=== PATIENT | female | born 1950 | race Caucasian/White ===

== ENCOUNTER 2021-05-16 09:11 | Emergency (ER) | payer MEDICARE, SELFPAY ==
--- NOTE | 2021-05-16 09:15 | DI.RAD_ITS ---
Exam(s) XR THUMB RT EXAM: XR THUMB RT CLINICAL HISTORY: FOOSH yesterday. TECHNIQUE: 2D digital imaging was performed. COMPARISON: No exams were available for comparison FINDINGS: BONES: No acute fracture is present. No bony destructive lesion is seen. JOINTS: No dislocation present. Mild degenerative changes interphalangeal joints. SOFT TISSUE: Normal. IMPRESSION: No evidence of acute fracture, dislocation, or subluxation. DATA REPOSITORY: RADIATION DOSE DELIVERED:
[2021-05-16 09:16] VITALS: BP 155/72; PULSE 87; RESP 16; TEMP 36.6; O2SAT 97
--- NOTE | 2021-05-16 09:23 | W.ED.GENAD ---
Discharge Plan Disposition Patient Disposition: HOME Condition: Good Discharge Details Clinical Impression: Sprain of thumb Primary Care Provider: [place],Local ED Provider: Susy Lira Home Meds and New Rx's Prescriptions: Continued levothyroxine [Synthroid] 88 mcg Tablet 88 mcg PO DAILY RF: 0 Discharge Instructions Instructions: Finger Sprain (ED) Additional Instructions: Your x-ray is reassuring here today. No evidence of fracture or dislocation. Concern for sprain. Please encourage rest, ice, elevation. Tylenol and ibuprofen as needed for discomfort. Please continue with splint while pain persist. Please follow-up with primary care in the 2 weeks for reevaluation. If you develop any new or worsening symptoms please seek care urgently once again. Please avoid heavy lifting with his hand or excess strain on the thumb. Medical Decision Making Patient is a pleasant 70-year-old [id number] female presented with chief complaint of right thumb pain. She reports that yesterday she was gathering cattails for a flower arrangement when she slipped and fell on her right hand. She denies striking her head, loss consciousness. States that she has a minor discomfort initially to the right knee but the pain subsided. No other injury at time of the incident. Pain is over the MCP joint. She denies any numbness or tingling. No radiation of pain. Has had limited range of motion secondary to swelling and discomfort. Has not had any analgesics as of yet. On exam, patient appears nontoxic. She is swelling over the metacarpal joint of the right thumb dorsal aspect. No swelling on the palmar side. Sensation is intact, intact capillary refill. 2+ distal pulses. No pain over the anatomical snuffbox. No pain elsewhere with palpation of the hands or fingers. No pain on palpation about the wrist. Patient has a limited range of motion but is able to demonstrate abduction and abduction. We will give ibuprofen to help with discomfort and obtain x-ray to evaluate potential bony abnormalities. FINDINGS: BONES: No acute fracture is present. No bony destructive lesion is seen. JOINTS: No dislocation present. Mild degenerative changes interphalangeal joints. SOFT TISSUE: Normal. IMPRESSION: No evidence of acute fracture, dislocation, or subluxation. Discussed these findings with the patient. Advised likely sprain. Perform more extensive ligamentous exam. She is able to flex and extend against resistance. I am concerned for potential ulnar collateral ligament injury. However, my exam is limited secondary to her discomfort and inability to really strain on this area. Will place the patient in a thumb spica. I encouraged rest, ice, elevation. Tylenol and ibuprofen as needed for discomfort. Advised that she should have this rechecked in 2 weeks with primary care. Patient is new to the area, I have asked her care management team to assist in establishing local primary care and ensuring follow-up in 2 weeks. Return precautions were discussed. All questions and concerns were addressed and she is agreement this plan peer HPI General Mode of arrival: ambulatory. Date/Time Provider Initiated Documentation: 05/16/21 09:23. Limitations to Documentation: no limitations. Information obtained by: patient and RN notes reviewed. History of Present Illness 70 year old F presents to the emergency department with the chief complaint of right thumb pain, described as severe, with intensity rated at 9. Quality is described as aching, and is localized to the right and upper extremity. Patient reports no radiation. Patient started experiencing this day(s) (1) and it has been constant. Immobilization improves symptom(s), Movement worsens symptoms . Patient notes no other symptoms.. Patient did receive the following treatments prior to arrival, none Related Data Home Medications Medication Instructions Recorded Confirmed levothyroxine [Synthroid] 88 mcg PO DAILY 05/16/21 05/16/21 Allergies Allergy/AdvReac Type Severity Reaction Status Date / Time epinephrine Allergy Unverified 05/16/21 09:20 Sulfa (Sulfonamide Allergy Unverified 05/16/21 09:20 Antibiotics) General Stated Complaint: Orthopedic KENYA: 4 Review of Systems Constitutional Constitutional: Reports as per HPI, Denies chills and Denies fever(s) Musculoskeletal Musculoskeletal: Reports as per HPI and Denies tingling Integumentary/Breasts Skin/Breast: Reports as per HPI, Denies rash and Denies wounds Neurologic Neurologic: Reports as per HPI, Denies tingling and Denies paresthesias [facility] Active Problem List (Updated 05/16/21 @ 10:10 by FROILAN Mcguire) Sprain of thumb (Acute) Social History Smoking/Tobacco Use Status: Never Smoking risk assessment performed?: Yes Substance use type: does not use Exam Const General: cooperative, healthy appearing, comfortable, no acute distress, well developed and well groomed Nutritional Appearance: average body habitus and well nourished Orientation: alert and awake Resp Effort & Inspection: normal respiratory effort, able to speak in complete sentences and no respiratory distress Cardio Rate: regular rate Rhythm: regular rhythm Skin Trauma: puncture (very small red dot consistent with area of pain. No surrounding erythema) and other (No warmth or drainage) Neuro General: patient alert and patient awake Cognition: normal cognition Speech: speech normal Gait: normal gait Motor: muscle tone normal throughout Sensory Exam: no sensory deficits noted Extrem Hand/finger images: 1. Area of discomfort. Swelling compared to the contralateral side. No erythema or warmth. Sensation is intact distally. Intact capillary refill. Limited abduction secondary to discomfort over the joint. Patient is able to extend up but does have pain with this well. No pain over the anatomical snuffbox. No pain palpation over the wrist. Forage motion of the wrist. No pain elsewhere with palpation about the hand. Psych Appearance: grossly normal and well kempt Mental Status: mental status grossly normal Speech and Movement: speech and movement normal Course Vital Signs Vital signs: Vital Signs Temperature 37.8 C H 05/16/21 09:16 Pulse 87 05/16/21 09:16 Respiratory Rate 16 05/16/21 09:16 Blood Pressure 155/72 H 05/16/21 09:16 Pulse Oximetry 97 05/16/21 09:16 Temperature 37.8 C H 05/16/21 09:16 Temperature Source Skin 05/16/21 09:16 Pulse 87 05/16/21 09:16 Respiratory Rate 16 05/16/21 09:16 Respiratory Effort Non-Labored 05/16/21 09:16 Blood Pressure 155/72 H 05/16/21 09:16 Pulse Oximetry 97 05/16/21 09:16 Oxygen Delivery Method Room Air 05/16/21 09:16 Oxygen Flow Rate 0 05/16/21 09:16 Pain Level 9 05/16/21 09:16
[2021-05-16] MEDS: Ibuprofen 600 MG TAB PO (09:35)
--- NOTE | 2021-05-16 10:28 | NUR.NOTE ---
Nursing Note: Referral to Care Management to establish care, re evaluation thumb, ligamentous strain in 2 weeks. Marisabel Calvillo
== END 2021-05-16 10:45 | disposition home or self-care (01) ==
PROVIDERS: Emergency Provider Physician Assistant
DX: S63.681A Other sprain of right thumb, initial encounter (principal); W01.0XXA Fall on same level from slipping, tripping and stumbling without subsequent striking against object, initial encounter
CPT/HCPCS: 29125; 99283; 73140

== ENCOUNTER 2021-09-29 02:16 | Outpatient (CLI) | payer MEDICARE, SELFPAY ==
[2021-09-29 14:46] LABS: ALT 45 U/L (14-59); AST 27 U/L (15-37); Alkaline Phosphatase 142 U/L (46-116)
[2021-09-29 15:04] LABS: Vitamin D 25 Total 41.2 ng/mL (30-100)
[2021-09-30 11:57] LABS: Parathyroid Hormone,Intact 112 pg/mL (19-88)
== END 2021-09-29 02:17 | disposition home or self-care (01) ==
LOC: LBO 02:16
PROVIDERS: Visit Provider Nurse Practitioner Family
DX: E55.9 Vitamin D deficiency, unspecified (principal); R94.5 Abnormal results of liver function studies
CPT/HCPCS: 36415; 82306; 83970; 84075; 84450; 84460

== ENCOUNTER 2021-10-14 19:00 | Outpatient (REF) | payer MEDICARE, SELFPAY | END 2021-10-14 19:01 | disposition home or self-care (01) | LOC: NCHCN 19:00 | PROVIDERS: Visit Provider Nurse Practitioner Family | CPT/HCPCS: 82340 ==

== ENCOUNTER 2021-10-19 19:00 | Outpatient (REF) | payer MEDICARE, SELFPAY ==
[2021-10-20 09:06] LABS: Calcium Urine 6.4 mg/dL (See Note); Calcium Urine 24 hr 208 mg/24hrs (100-300); Timed Urine Volume 3250 mL
== END 2021-10-19 19:01 | disposition home or self-care (01) ==
LOC: NCHCN 19:00
PROVIDERS: Visit Provider Nurse Practitioner Family
DX: E21.0 Primary hyperparathyroidism (principal)
CPT/HCPCS: 81050; 82340

== ENCOUNTER 2021-12-13 19:58 | Outpatient (REF) | payer MEDICARE, SELFPAY ==
[2021-12-13 15:24] LABS: HCT 45.2 % (36.0-46.0); HGB 14.5 g/dL (11.2-15.7); MCH 30.5 pg (27.0-33.0); MCHC 32.1 % (32.0-36.0); MCV 95 fL (80-95); MPV 11.7 fL (8.0-11.0); Platelet Count 205 10^3/uL (130-400); RBC 4.76 10^6/uL (3.93-5.22); RDW 13.4 % (11.7-14.6); RDW-SD 47.6 fL
[2021-12-13 16:29] LABS: TSH (W/Ref FT4) 0.39 uIU/mL (0.36-3.74)
== END 2021-12-13 19:59 | disposition home or self-care (01) ==
LOC: NCHCN 19:58
PROVIDERS: Visit Provider Nurse Practitioner Family
DX: E03.9 Hypothyroidism, unspecified (principal); R53.83 Other fatigue
CPT/HCPCS: 85027; 84443

== ENCOUNTER 2022-03-08 20:30 | Outpatient (REF) | payer MEDICARE, SELFPAY ==
[2022-03-08 15:48] LABS: TSH (W/Ref FT4) 0.48 uIU/mL (0.36-3.74)
== END 2022-03-08 20:31 | disposition home or self-care (01) ==
LOC: NCHCN 20:30
PROVIDERS: Visit Provider Nurse Practitioner Family
DX: R53.83 Other fatigue (principal)
CPT/HCPCS: 84443

== ENCOUNTER → 2022-03-28 00:35 | Outpatient (CLI) | payer MEDICARE, SELFPAY ==
--- NOTE | 2022-03-28 11:45 | DI.MAMMO_ITS ---
Exam(s) MAMMO SCREENING EXAM: MAMMO SCREENING CLINICAL HISTORY: SCREENING, Z12.39 TECHNIQUE: Mammograms were interpreted according to the usual protocol including computer analysis w [employer] CAD system, tomosynthesis and C-view imaging. COMPARISON: FINDINGS: The breasts are of moderate density with fairly symmetrical distribution of fibroglandular tissue. N o dominant mass or clumped microcalcification is identified in either breast. The current examinatio n is compared with previous examinations including September 2020 and there has been no gross interval ch maria del carmen in appearance in comparison with the prior studies. IMPRESSION: No specific evidence of malignancy at this time. Routine screening examinations are suggested at ye wanda intervals in this age group according to the ACS ACR guidelines. BI-RADS Category 1 - Negative Breast Density - Category B - Scattered areas of fibroglandular density
== END ==
PROVIDERS: Visit Provider Nurse Practitioner Family
DX: Z12.31 Encounter for screening mammogram for malignant neoplasm of breast (principal)
CPT/HCPCS: 77063; 77067

== ENCOUNTER 2022-08-15 14:47 | Outpatient (REF) | payer MEDICARE, SELFPAY ==
[2022-08-15 21:01] LABS: HCT 46.2 % (36.0-46.0); HGB 15.1 g/dL (11.2-15.7); MCH 30.5 pg (27.0-33.0); MCHC 32.7 % (32.0-36.0); MCV 93 fL (80-95); MPV 11.6 fL (8.0-11.0); Platelet Count 214 10^3/uL (130-400); RBC 4.95 10^6/uL (3.93-5.22); RDW 13.2 % (11.7-14.6)
[2022-08-15 21:26] LABS: ALT 33 U/L (14-59); AST 22 U/L (15-37); Alkaline Phosphatase 129 U/L (46-116); BUN 13 mg/dL (7-18); Bilirubin, Total 0.3 mg/dL (0.2-1.0); CREATININE 0.9 mg/dL (0.55-1.02); Calcium 9.5 mg/dL (8.5-10.1); Chloride 105 mmol/L (98-107); Glucose 81 mg/dL (74-106); Potassium 4.4 mmol/L (3.5-5.1); Sodium 140 mmol/L (136-145); TSH (W/Ref FT4) 0.54 uIU/mL (0.36-3.74); Total Protein 6.8 g/dL (6.4-8.2)
[2022-08-15 22:01] LABS: Vitamin D 25 Total 42.5 ng/mL (30-100)
[2022-08-16 18:30] LABS: Parathyroid Hormone,Intact 69 pg/mL (19-88)
== END 2022-08-15 14:48 | disposition home or self-care (01) ==
LOC: NCHCN 14:47
PROVIDERS: PCP Nurse Practitioner Family; Visit Provider Nurse Practitioner Family
DX: E03.9 Hypothyroidism, unspecified (principal); E21.0 Primary hyperparathyroidism; G47.33 Obstructive sleep apnea (adult) (pediatric); E83.52 Hypercalcemia; R94.5 Abnormal results of liver function studies
CPT/HCPCS: 80053; 82306; 85027; 83970; 84443

== ENCOUNTER 2022-12-12 03:28 | Outpatient (CLI) | payer MEDICARE, SELFPAY ==
[2022-12-12 12:19] LABS: Abs Immature Grans 0.02 10^3/uL (0.0-0.06); Absolute Basophil Count 0.09 10^3/uL (0.0-0.2); Absolute Eosinophil Count 0.24 10^3/uL (0.0-0.7); Absolute Monocyte Count 0.81 10^3/uL (0.1-0.8); Absolute Neutrophil Count 5.67 10^3/uL (1.2-6.7); Basophils % 0.9; Eosinophils % 2.4; HCT 45.2 % (36.0-46.0); HGB 14.7 g/dL (11.2-15.7); Immature Grans % 0.2; Lymphocytes % 30.5; MCH 30.4 pg (27.0-33.0); MCHC 32.5 % (32.0-36.0); MCV 94 fL (80-95); MPV 10.9 fL (8.0-11.0); Monocytes % 8.2; Neutrophils % 57.8; Platelet Count 236 10^3/uL (130-400); RBC 4.83 10^6/uL (3.93-5.22); RDW 13.4 % (11.7-14.6); RDW-SD 46.2 fL; WBC 9.83 10^3/uL (4.4-10.8)
[2022-12-12 12:41] LABS: ALT 27 U/L (14-59); AST 18 U/L (15-37); Albumin 3.5 g/dL (3.4-5.0); Alkaline Phosphatase 118 U/L (46-116); Anion Gap 8.2 mmol/L (3-11); BUN 17 mg/dL (7-18); Bilirubin, Total 0.5 mg/dL (0.2-1.0); CO2 25.8 mmol/L (21.0-32.0); Chloride 108 mmol/L (98-107); Estimated GFR 59.12 (mL/min/1.73m2); Glucose 117 mg/dL (74-106); Potassium 4.5 mmol/L (3.5-5.1); Sodium 142 mmol/L (136-145)
[2022-12-12 12:53] LABS: Calcium 9.3 mg/dL (8.5-10.1)
[2022-12-13 08:41] LABS: Lab Add On Test DONE
[2022-12-13 09:03] LABS: Hemoglobin A1C 6.2 % (<5.7)
== END 2022-12-12 03:29 | disposition home or self-care (01) ==
LOC: LOS 03:28
PROVIDERS: PCP Family Medicine; Visit Provider Family Medicine
DX: E03.9 Hypothyroidism, unspecified (principal); D64.9 Anemia, unspecified; R73.9 Hyperglycemia, unspecified; R10.9 Unspecified abdominal pain
CPT/HCPCS: 36415; 80053; 83036; 84443; 85025

== ENCOUNTER 2023-01-11 16:42 | Outpatient (CLI) | payer MEDICARE, SELFPAY ==
--- NOTE | 2023-01-11 16:30 | RT.EKG_ITS ---
APPROVED REPORT Exam: Resting ECG Reason for Exam: c/o jaw pain Patient Location: O HR:102 bpm ECG Measurements Heart Rate 102 AXIS MD 143 P 80 QRSd 80 QRS 80 QT 331 T 59 QTc 432 Conclusion Sinus tachycardia...rate> 99 Artifact in lead(s) V3 and baseline wander in lead(s) V3 Otherwise normal ECG
== END 2023-01-11 16:43 | disposition home or self-care (01) ==
LOC: DI.CM 16:42
PROVIDERS: PCP Family Medicine; Visit Provider Family Medicine
DX: R68.84 Jaw pain (principal)
CPT/HCPCS: 93010

== ENCOUNTER 2023-01-11 17:38 | Emergency (ER) | payer MEDICARE, SELFPAY ==
[2023-01-11] VITALS (41 sets, daily range): BP systolic 105–151; BP diastolic 36–116; PULSE 0–107; RESP 13–34; TEMP 37.1; O2SAT 90–96
--- NOTE | 2023-01-11 17:45 | RT.EKG_ITS ---
APPROVED REPORT Exam: Resting ECG Reason for Exam: tachycardia Patient Location: E HR:96 bpm ECG Measurements Heart Rate 96 AXIS AZ 119 P 41 QRSd 78 QRS 78 QT 330 T 54 QTc 416 Conclusion Sinus rhythm...normal P axis, V-rate 60- 99 sinus rhythm, normal axis, normal intervals, non ischemic
--- NOTE | 2023-01-11 18:30 | DI.CT_ITS ---
Exam(s) CT CHEST PE ABD PELVIS W EXAM: CT CHEST PE ABD PELVIS W CLINICAL HISTORY: tachycardia, hypoxia, abd pain bloating. TECHNIQUE: Imaging Protocol: Axial computed tomography images with coronal and sagittal reformatted images were created and reviewed CONTRAST MATERIAL: Intravenous: Omnipaque 350 Contrast volume:100 ml Oral: yes COMPARISON: No exams were available for comparison FINDINGS: CHEST: Tracheobronchial tree: Patent where visualized. Pulmonary parenchyma: Mild dependent changes. No consolidation or dominant measurable mass. Pleura: No effusion or pneumothorax. Lymph nodes: Within normal limits. Aorta: Thoracic portion non-dilated. Mild atherosclerotic changes. No dissection. Pulmonary arteries: No evidence of pulmonary emboli. Heart: Normal size. Minimal coronary artery calcifications. Bones: Unremarkable for age. No lytic or blastic lesions.No compression fractures. ABDOMEN: Liver: Normal density. No measurable mass. Gallbladder and biliary tract: No radiodense calculus or dilation. Pancreas: Normal density, no abnormal calcifications or inflammatory process. Spleen: Normal. Kidneys: Normal size, contour and axis. No radiodense stones or obstructive uropathy. No suspicious m asses seen. Adrenal glands: No masses seen. Aorta and branch vessels: Abdominal portion non-dilated. Moderate atherosclerotic changes. Iliac and femoral arteries are patent. Celiac axis, SMA and renal arteries are patent. Accessory left renal artery. Lymph nodes: Within normal limits. Soft tissues: Unremarkable. PELVIS: Bladder: Symmetric distention, no gross wall thickening. Bowel: No obstruction or bowel wall thickening. Sigmoid diverticulosis. Normal quantity of stool. Peritoneal cavity: No ascites, collection or mesenteric inflammatory response. Bones: Degenerative disc changes in the lumbar spine. Degenerative changes in the hips, right greate r than left. Reproductive organs: Status post hysterectomy. IMPRESSION: No acute abnormality in the chest, abdomen or pelvis.. Moderate atherosclerotic changes, mainly of the abdominal aorta. No evidence of significant branch v essel stenosis. RADIATION DOSE DELIVERED: Total DLP DATA REPOSITORY: All CT scans at this facility are submitted to the National Radiology Data Registry (NRDR) Dose Index Registry (DIR) with the [employer] (ACR). RADIATION OPTIMIZATION: All CT scans at this facility use at least one of these dose optimization te chniques: automated exposure control; mA and/or kV adjustment per patient size (includes targeted exa ms where dose is matched to clinical indication); or iterative reconstruction.
--- NOTE | 2023-01-11 18:38 | W.ED.GENAD ---
Discharge Plan Discharge Details Chief Complaint: GenMedical Primary Care Provider: Teja Medina ED Provider: Kiel Velazquez Home Meds and New Rx's Prescriptions: No Action levothyroxine [Synthroid] 88 mcg Tablet 88 mcg PO DAILY Medical Decision Making 72-year-old female history of diabetes hypothyroidism presents referred in by primary care physician for evaluation of tachycardia and hypoxia, no chest pain or shortness of breath, has felt fatigued over the past couple of weeks, has also experienced abdominal pain bloating and nausea; pulled an engorged tick off her lower extremity within the last couple of weeks; history of exogenous estrogen use recently stopped within the last month. Must consider PE given hypoxia and tachycardia and recent estrogen use must also consider viral illness versus bacterial infection such as UTI versus intra-abdominal infection given bloating and nausea however nontender nondistended nonperitoneal versus hypothyroidism versus tickborne illness must also consider pneumonia lower suspicion for aortic pathology ACS CHF or pneumothorax; will obtain screening labs CT chest abdomen pelvis fluids close reassessment disposition pending result 20: 13 resting comfortably evidence of leukocytosis. Disposition pending lab results and imaging results. HPI General Date/Time Provider Initiated Documentation: 01/11/23 17:48. HPI Narrative: 72-year-old female history of diabetes hypothyroidism presents with fatigue, noted by her primary care physician to have tachycardia and relative hypoxia to the low 90s on room air, no chest pain or shortness of breath Farrukh has felt fatigued over the past several weeks, no recent travel no leg swelling or leg pain, no history of thromboembolic disease however patient was recently on supplemental estrogen recently discontinued approximately 1 month; has also felt abdominal discomfort and nausea and some bloating and recently pulled an engorged tick off her leg. Related Data Home Medications Medication Instructions Recorded Confirmed levothyroxine 88 mcg tablet 88 mcg PO DAILY 05/16/21 01/11/23 (Synthroid) Allergies Allergy/AdvReac Type Severity Reaction Status Date / Time prednisone Allergy Unknown Verified 01/11/23 17:44 epinephrine Allergy Verified 01/11/23 17:44 Sulfa (Sulfonamide Allergy Verified 01/11/23 17:44 Antibiotics) General Stated Complaint: GenMedical KENYA: 3 Review of Systems Narrative: Review of Systems Constitutional: Fatigue Eyes: negative ENT: negative Cardiovascular: negative Respiratory: negative Gastrointestinal: Abdominal pain nausea bloating : negative Musculoskeletal: negative Skin: negative Neurologic: negative Psych: negative PFSH All Active Problems (Updated 01/11/23 @ 17:21 by Teja Medina MD) Hypoxia (Acute) Weakness (Acute) Chronic fatigue (Acute) Hyperglycemia (Acute) Hot flashes (Acute) Hypothyroidism (Chronic) Vitamin D deficiency (Acute) Depressive disorder (Chronic) Fatty liver (Acute) Hyperlipidemia (Acute) Diabetes mellitus type 2 in obese (Acute) Arthritis (Acute) ADD (attention deficit disorder) (Acute) Obesity (Chronic) Obstructive sleep apnea (Chronic) Hypercalcemia (Acute) Elevated liver function tests (Acute) Osteopenia (Acute) Primary hyperparathyroidism (Acute) Hearing deficit (Acute) BMI 31.0-31.9,adult (Acute) Elevated blood pressure reading without diagnosis of hypertension (Acute) Sprain of thumb (Acute) Surgical History (Updated 12/05/22 @ 09:18 by Kati Bennett) Hx of hysterectomy Family History (Updated 12/05/22 @ 10:23 by Kati Bennett) Mother , 72 Depression Father , 86 Depression Substance use disorder Sister No problems noted. Sister No problems noted. Brother Depression Brother Depression Son No problems noted. Son No problems noted. Maternal Grandfather , 56 Cancer Unspecified Paternal Grandfather , 80 No problems noted. Maternal Grandmother , 98 No problems noted. Paternal Grandmother , 36 No problems noted. Social History (Updated 12/05/22 @ 10:21 by Kati Bennett) Smoking/Tobacco Use Status: Never Second Hand Exposure: No Smoking risk assessment performed?: Yes Alcohol Intake: current Alcohol Intake frequency: a few times a month Alcohol type: wine Drug use: Never Substance use type: does not use Caregiver/Support person: No Household members: family and children Housing: apartment Communication Needs: None Do you need help understanding health information?: Rarely Pets and animals: No Sexually active: No Do you think of yourself as: straight/heterosexual Current gender identity: female What is your relationship status?: never How often do you talk on the phone with friends or family?: three or more times per week How often do you get together with friends or relatives?: twice per week How often do you attend confucianist or jehovah's witness services?: decline to answer Do you belong to any clubs or organized social groups?: no Panel score (0-1 are the most socially isolated patients): 1 What type of physical activity do you participate in: walking Duration: 30-45 minutes/day Frequency: 3-4 times per week Hellen/Hoahaoism: None Special hellen needs: No Seatbelt use: always Helmet use: Yes Helmet use: always Drive intox or ride w/intox refrigerated national truck driver: No Do you feel safe at home: Yes Do you feel safe in your relationship?: Yes Exam Narrative Exam Narrative: Physical Examination General: alert, awake, cooperative, resting comfortably, no acute distress HEENT: normocephalic, atraumatic; PERRL, EOM intact, conjunctiva normal; no nasal discharge; moist mucous membranes, oral and pharyngeal mucosa normal, tolerating secretions Neck: supple, trachea midline; full ROM Chest: normal to inspection Respiratory: normal respiratory effort, speaking in full sentences, clear to auscultation, no wheezing, rales or rhonchi Cardiac: regular rate, regular rhythm, S1S2 intact, no murmurs rubs or gallops GI: abdomen soft, non-tender, non-distended; no palpable mass or hepatosplenomegaly Skin: no lesions, rashes or trauma appreciated Neuro: AAOx3, normal speech, moving all extremities Extremities: No peripheral edema Psych: Appropriate mood and affect Course Vital Signs Vital signs: Vital Signs Temperature 37.1 C 01/11/23 17:40 Pulse 107 H 01/11/23 17:40 Respiratory Rate 18 01/11/23 17:40 Blood Pressure 128/63 01/11/23 17:40 Pulse Oximetry 96 01/11/23 17:40 Temperature 37.1 C 01/11/23 17:40 Temperature Source Skin 01/11/23 17:40 Pulse 107 H 01/11/23 17:40 Respiratory Rate 18 01/11/23 17:40 Respiratory Effort Normal 01/11/23 18:03 Respiratory Depth Normal 01/11/23 18:03 Respiratory Pattern Normal 01/11/23 18:03 Blood Pressure 128/63 01/11/23 17:40 Blood Pressure Position Sitting 01/11/23 17:40 Pulse Oximetry 96 01/11/23 17:40 Oxygen Delivery Method Room Air 01/11/23 17:40 Oxygen Flow Rate 0 01/11/23 17:40 Pain Level 2 01/11/23 17:40 Sign Out Sign Out Data: Sign Out Comment: pending CT PE ABD PELV, fatigue, nausea, relative hypoxia and tachycardia Last updated by Isai Morrow MD at 01/11/23 19:50
[2023-01-11] MEDS: Normal Saline 1,000 ML 1000 ML IV (18:40)
[2023-01-11 18:55] LABS: Abs Immature Grans 0.06 10^3/uL (0.0-0.06); Absolute Lymphocyte Count 0.95 10^3/uL (1.2-3.4); Absolute Neutrophil Count 14.25 10^3/uL (1.2-6.7); Basophils % 0.2; Eosinophils % 0.4; HCT 48.5 % (36.0-46.0); HGB 15.7 g/dL (11.2-15.7); Immature Grans % 0.4; Lymphocytes % 5.9; MCH 30.3 pg (27.0-33.0); MCHC 32.4 % (32.0-36.0); MCV 94 fL (80-95); MPV 10.9 fL (8.0-11.0); Monocytes % 4.4; Neutrophils % 88.7; Platelet Count 223 10^3/uL (130-400); RBC 5.18 10^6/uL (3.93-5.22); RDW 13.3 % (11.7-14.6); RDW-SD 45.9 fL; WBC 16.07 10^3/uL (4.4-10.8)
[2023-01-11 18:56] LABS: Absolute Basophil Count 0.03 10^3/uL (0.0-0.2); Absolute Eosinophil Count 0.06 10^3/uL (0.0-0.7); Absolute Monocyte Count 0.71 10^3/uL (0.1-0.8)
[2023-01-11 19:15] LABS: INR 0.9 (0.9-1.1); PTT Activated 26.5 sec (21.5-31.9); Prothrombin Time 9.3 sec (9.3-11.0)
[2023-01-11 19:17] LABS: Lipase 68 U/L (16-77); NT-proBNP 66 pg/mL (<300)
[2023-01-11 19:19] LABS: ALT 28 U/L (14-59); AST 23 U/L (15-37); Albumin 3.9 g/dL (3.4-5.0); Alkaline Phosphatase 115 U/L (46-116); Anion Gap 8.2 mmol/L (3-11); BUN 19 mg/dL (7-18); Bilirubin, Total 0.6 mg/dL (0.2-1.0); CO2 25.8 mmol/L (21.0-32.0); Calcium 9.1 mg/dL (8.5-10.1); Chloride 106 mmol/L (98-107); Estimated GFR 59.12 (mL/min/1.73m2); Glucose 106 mg/dL (74-106); Potassium 4.3 mmol/L (3.5-5.1); Sodium 140 mmol/L (136-145); TSH (W/Ref FT4) 0.38 uIU/mL (0.36-3.74); Total Protein 7.2 g/dL (6.4-8.2); Troponin I < 50 ng/L (<or=60)
[2023-01-11 19:27] LABS: COVID-19 PCR Negative (Negative); Influenza A PCR Negative (Negative); Influenza B PCR Negative (Negative); RSV PCR Negative (Negative)
[2023-01-11 19:29] LABS: Source Nasopharynx
[2023-01-11] MEDS: Omnipaque 350 MG/ML 100 ML BTL IJ (19:44)
--- NOTE | 2023-01-11 20:15 | DI.VRAD_ITS ---
PROCEDURE INFORMATION: Exam: CTA Chest With Contrast CTA Abdomen With Contrast Exam date and time: 01/11/2023 7:38 PM Age: 72 years old Clinical indication: Other: Tachycardia, hypoxia, abd pain bloating TECHNIQUE: Imaging protocol: Computed tomographic angiography of the chest with contrast. Exam focused on the arteries. Computed tomographic angiography of the abdomen with contrast. Exam focused on the arteries. 3D rendering (Not supervised by radiologist): MIP and/or 3D reconstructed images were created by the technologist. Contrast material: OMNIAPQUE 350; Contrast volume: 100 ml; Contrast route: INTRAVENOUS (IV); COMPARISON: No relevant prior studies available. FINDINGS: VASCULATURE: Pulmonary arteries: Normal. No pulmonary emboli. Aorta: Moderate atherosclerotic calcification and mural thrombus throughout the abdominal aorta. No evidence of aortic aneurysm or dissection. Celiac trunk and mesenteric arteries: No occlusion or significant stenosis. Renal arteries: Accessory left renal artery arises approximally 3.3 cm below the level of the main left renal artery. No evidence of renal artery stenosis. CHEST: Lungs: Mild patchy subsegmental atelectasis in the lower lungs. No active pulmonary infiltrate. Pleural spaces: Unremarkable. No pneumothorax. No pleural effusion. Heart: Unremarkable. No cardiomegaly. No pericardial effusion. ABDOMEN AND PELVIS: Liver: No mass. Gallbladder and bile ducts: Unremarkable. No calcified stones. No ductal dilation. Pancreas: Unremarkable. No mass. No ductal dilation. Spleen: Unremarkable. No splenomegaly. Adrenal glands: Unremarkable. No mass. Kidneys and ureters: Unremarkable. No solid mass. No hydronephrosis. Stomach and bowel: Moderate sigmoid diverticulosis. No bowel wall thickening or evidence of bowel obstruction. Intraperitoneal space: Unremarkable. No free air. No significant fluid collection. Lymph nodes: Unremarkable. No enlarged lymph nodes. Bones/joints: Significant degenerative disc changes throughout the lumbar spine with sparing of the L1-L2 level. No vertebral body compression or acute fracture. Moderate degenerative changes in the bilateral hip joints. Soft tissues: Unremarkable. IMPRESSION: Moderate atherosclerotic disease of the aorta without evidence of aneurysm or dissection. No significant celiac, mesenteric, iliac or renal artery stenosis. Other incidental findings as noted. No acute abnormality. Dictated and Authenticated by: Mikhail Almodovar MD. Ordering:BOBY Alex MD
[2023-01-11 20:25] LABS: Bilirubin Negative (Negative); Blood Negative (Negative); Clarity Clear (Clear); Glucose Negative (Negative); Ketones Negative (Negative); Leukocyte Esterase Negative (Negative); Nitrite Negative (Negative); Specific Gravity <= 1.005 (1.005-1.025); Urobilinogen 0.2 mg/dL (Up to 0.2); pH 5.5 (5-8)
--- NOTE | 2023-01-11 21:55 | NUR.NOTE ---
Nursing Note: Report to Pushpa ZAZUETA
[2023-01-11 22:10] LABS: Troponin I < 50 ng/L (<or=60)
--- NOTE | 2023-01-11 22:22 | W.EDPROG ---
Date of service: 01/11/23 Time of Service: 22:22 Medical Decision Making pt signed out to me pending second troponin which is negative, she is stable and has no chest pain, stable vitals. Discussed results with her and given reassuring workup feel she is stable for d/c, advised to f/u with pcp. Discussed empiric doxy but she declined this and wants to wait for results of the tick panel Sign Out Sign Out Data: Sign Out Comment: pending CT PE ABD PELV, fatigue, nausea, relative hypoxia and tachycardia Last updated by Isai Morrow MD at 01/11/23 19:50 Discharge Plan Disposition Patient Disposition: Home Condition: Stable Discharge Details Clinical Impression: Fatigue Primary Care Provider: Teja Medina ED Provider: Kiel Velazquez [place] Meds and New Rx's Prescriptions: Continued levothyroxine [Synthroid] 88 mcg Tablet 88 mcg PO DAILY Discharge Instructions Instructions: Fatigue (ED) Additional Instructions: Your workup today did not reveal any concerning findings at this time follow up with your primary care provider within 1 week if you feel more ill, have severe chest pain or trouble breathing return to the emergency department
--- NOTE | 2023-01-13 08:13 | NUR.NOTE ---
Nursing Note: Accessed pt chart to determine if the Lyme panel was completed. It is not and pt was notified that it would be probably the first of next week. She stated she is now having consistent diarrhea, what to do? Consulted with FROILAN Mcguire and patient was told that she could return to ED for exam, wait to see PCP, go to [facility], or talk to telephone MD engine repairer production. She elected to speak to engine repairer production MD.
[2023-01-15 09:20] LABS: Lyme Ab w Rflx to Lyme Confirm Negative (Negative)
[2023-01-16 15:38] LABS: Anaplasma phagocytophilum Negative (Negative); B. miyamotoi PCR Negative (Negative); Babesia divergens/MO-1 Negative (Negative); Babesia duncani Negative (Negative); Babesia microti Negative (Negative); Ehrlichia chaffeensis Negative (Negative); Ehrlichia ewingii/canis Negative (Negative); Ehrlichia muris eauclairensis Negative (Negative)
== END 2023-01-11 23:22 | disposition home or self-care (01) ==
PROVIDERS: Emergency Medicine; Emergency Provider Emergency Medicine; PCP Family Medicine
DX: R53.83 Other fatigue (principal); R68.84 Jaw pain; R00.0 Tachycardia, unspecified; E11.9 Type 2 diabetes mellitus without complications; E03.9 Hypothyroidism, unspecified; Z79.84 Long term (current) use of oral hypoglycemic drugs; R09.02 Hypoxemia
CPT/HCPCS: 71275; 74177; 80053; 83690; 87637; 87798; 93005; 96360; 99285; 81003; 83880; 84443; 84484; 85025; 85610; 85730; 86618; 93010; 99283; J3490

== ENCOUNTER 2023-02-01 02:42 | Outpatient (CLI) | payer MEDICARE, SELFPAY ==
[2023-02-01 09:34] LABS: Calculated LDL 132 mg/dL (<100); Cholesterol 216 mg/dL (<200); HDL Cholesterol 52 mg/dL (40-60); TSH (W/Ref FT4) 1.18 uIU/mL (0.36-3.74); Triglyceride 164 mg/dL (<150)
== END 2023-02-01 02:43 ==
LOC: LBO 02:42
PROVIDERS: PCP Family Medicine; Visit Provider Obstetrics & Gynecology
DX: E66.9 Obesity, unspecified (principal); E11.69 Type 2 diabetes mellitus with other specified complication
CPT/HCPCS: 36415; 80061; 84443

== ENCOUNTER 2023-03-24 03:46 | Emergency (ER) | payer MEDICARE, SELFPAY ==
[2023-03-24] VITALS (15 sets, daily range): BP systolic 158–211; BP diastolic 54–81; PULSE 83–93; RESP 9–19; TEMP 36.2–36.4; O2SAT 93–98
--- NOTE | 2023-03-24 03:45 | RT.EKG_ITS ---
APPROVED REPORT Exam: Resting ECG Reason for Exam: tachy Patient Location: E HR:90 bpm ECG Measurements Heart Rate 90 AXIS RI 170 P 74 QRSd 84 QRS 77 QT 362 T 52 QTc 443 Conclusion Sinus rhythm...normal P axis, V-rate 60- 99
--- NOTE | 2023-03-24 04:20 | ED.GENADUL_ITS ---
Discharge Plan Disposition Patient Disposition: Home Condition: Good Discharge Details Clinical Impression: Atrial fibrillation and flutter Primary Care Provider: Teja Medina ED Provider: Hillary Luo Home Meds and New Rx's Prescriptions: New lorazepam 0.5 mg tablet 0.5 mg PO TID PRN (Reason: agitation) Qty: 15 0RF Continued Mounjaro 2.5 mg/0.5 mL pen injector 2.5 mg subcut QWEEK 28 Days Qty: 2 1RF Rx Instructions: Inject subcutaneously 2.5 mg once weekly levothyroxine [Synthroid] 88 mcg tablet 88 mcg PO DAILY Qty: 90 3RF Fluad Quad (65y up)(PF) 60 mcg (15 mcg x 4)/0.5 mL syringe 0.5 ml IM ONCE Qty: 0.5 0RF Discharge Instructions Instructions: A-fib (Atrial Fibrillation) (ED) Additional Instructions: Take your heart rate and determine whether it is regular or irregular if you are feeling agitated and like your heart is going fast. If your heart rate is over 120 bpm return to the ER. Few teeth are chattering please take your temperature at home and come to the ER for fever. Dr. Medina's office should call you Sunday for a follow-up appointment. Medical Decision Making Patient's heart rate does elevate into the 120s on the monitor. At times when she is going both fast and slow it looks like she is in atrial fibrillation/flutter. She also has PACs. We will try to catch this with a monitor printout. 0550 We did leave the patient on the monitor but aside from PACs she did not go into A-fib/flutter again. [id number] score is 3. We did discuss anticoagulation and risk of stroke. She declines starting this medication at this time. I told her that Dr. Medina may want to order a Holter or event monitor for her. She will try a SA Ativan to try to sleep. It is unclear whether this is being caused by her new injectable medication. Most of the side effects are GI in origin. Medical Records Medical records reviewed: Yes I reviewed the patient's medical records. Lab Data Lab results reviewed: Yes I reviewed the patient's lab results. Lab results narrative: WNL ECG Data Attestation: I personally reviewed and interpreted this ECG (s) as follows: (NSR 90, nl intervals and EKG) HPI General Date/Time Provider Initiated Documentation: 03/24/23 04:03 . HPI Narrative: This 72-year-old female patient presents with a chief complaint of malaise. The patient states that she just began taking Mounjaro 3 nights ago for weight loss. She has a history of type 2 diabetes. She states that she has not been able to sleep for the past 2 nights. She just does not feel well. Tonight she felt agitated, her heart rate was going fast, and her teeth were chattering. She has not had a fever that she knows of. She tells me that her temperature typically runs a little bit low. She has been passing grace colored stool and has felt vaguely nauseous. She denies abdominal pain, vomiting, or diarrhea. There is no dysuria. She has had no chest pain, difficulty breathing, or URI symptoms. She does state that she has a mild headache. There is no stiff neck or rash. She has no weakness, dizziness, or pedal edema. The Mounjaro is an injectable medicine that you take once a week. 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 He has not tried anything to make herself feel better. She states she is quite sensitive to medications. Related Data Home Medications Medication Instructions Recorded Confirmed Synthroid 88 mcg tablet 88 mcg PO DAILY #90 tabs 03/12/23 03/24/23 (levothyroxine) tirzepatide 2.5 mg/0.5 mL 2.5 mg (0.5 mL) subcut QWEEK 4 03/12/23 03/24/23 subcutaneous pen injector weeks #2 mL (Mounjaro) lorazepam 0.5 mg tablet 0.5 mg PO TID PRN agitation #15 03/24/23 tabs Previous Rx's Medication Instructions Recorded Synthroid 88 mcg tablet 88 mcg PO DAILY #90 tabs 03/12/23 (levothyroxine) tirzepatide 2.5 mg/0.5 mL 2.5 mg (0.5 mL) subcut QWEEK 4 03/12/23 subcutaneous pen injector weeks #2 mL (Mounjaro) lorazepam 0.5 mg tablet 0.5 mg PO TID PRN agitation #15 03/24/23 tabs Allergies Allergy/AdvReac Type Severity Reaction Status Date / Time prednisone Allergy Unknown Verified 01/31/23 13:04 epinephrine Allergy Verified 01/31/23 13:04 Sulfa (Sulfonamide Allergy Verified 01/31/23 13:04 Antibiotics) General Stated Complaint: Allergic KENYA: 3 Review of Systems Constitutional Constitutional: Reports chills (Has had shaking chills with teeth chattering), Denies fever(s), Reports headache(s) (Mild) and Denies weakness Eyes Eyes: Denies diplopia and Reports other (no redness) ENT Ears, Nose, Mouth, and Throat: Denies otalgia, Reports headache(s) (Mild), Denies nasal congestion, Denies nasal discharge, Denies neck pain and Denies sore throat Cardiovascular Cardiovascular: Denies chest pain, Reports palpitations (Heart rate has felt fast but is 90 in the ED) and Denies dyspnea Respiratory Respiratory: Denies cough and Denies dyspnea Gastrointestinal Gastrointestinal: Denies abdominal pain, Denies diarrhea, Reports nausea and Denies vomiting Genitourinary Genitourinary: Denies dysuria Musculoskeletal Musculoskeletal: Denies myalgias, Denies muscle weakness, Denies neck pain, Denies numbness and Reports other (edema) Integumentary/Breasts Skin/Breast: Denies change in pigmentation and Denies rash Neurologic Neurologic: Reports headache(s) (Mild), Denies numbness, Denies weakness and Reports other (Feels agitated) Endocrine Endocrine: Reports palpitations (Heart rate has felt fast but is 90 in the ED) [facility] All Active Problems (Updated 03/24/23 @ 05:37 by Hillary Luo MD) Atrial fibrillation and flutter (Acute) Dysthymia (Acute) Hypothyroidism (Chronic) Fatty liver (Acute) Hyperlipidemia (Acute) Diabetes mellitus type 2 in obese (Acute) ADD (attention deficit disorder) (Acute) Obesity (Chronic) Osteopenia (Acute) Primary hyperparathyroidism (Acute) BMI 31.0-31.9,adult (Acute) Medical History Arthritis Chronic fatigue Depressive disorder Elevated blood pressure reading without diagnosis of hypertension Elevated glucose Elevated liver function tests Hearing deficit Hot flashes Hypercalcemia Hyperglycemia Hypoxia Obstructive sleep apnea Sprain of thumb Vitamin D deficiency Weakness Well woman exam with routine gynecological exam Surgical History Hx of hysterectomy Family History Mother , 72 Depression Bipolar affect, depressed Father , 86 Depression Substance use disorder Sister FHx: mental illness Sister No problems noted. Brother Depression Bipolar affect, depressed Brother Depression Bipolar affect, depressed Son No problems noted. Son No problems noted. Maternal Grandfather , 56 Cancer Unspecified Paternal Grandfather , 80 No problems noted. Maternal Grandmother , 98 No problems noted. Paternal Grandmother , 36 No problems noted. Social History Smoking/Tobacco Use Status: Never Second Hand Exposure: No Smoking risk assessment performed?: Yes Alcohol Intake: current Alcohol Intake frequency: a few times a month Alcohol type: wine Drug use: Never Substance use type: does not use Caregiver/Support person: No Household members: family and children Housing: apartment Communication Needs: None Do you need help understanding health information?: Rarely Pets and animals: No Sexually active: No Do you think of yourself as: straight/heterosexual Current gender identity: female What is your relationship status?: never How often do you talk on the phone with friends or family?: three or more times per week How often do you get together with friends or relatives?: twice per week How often do you attend lutheran or yazidism services?: decline to answer Do you belong to any clubs or organized social groups?: no Panel score (0-1 are the most socially isolated patients): 1 What type of physical activity do you participate in: walking Duration: 30-45 minutes/day Frequency: 3-4 times per week Hellen/Uatsdin: None Special hellen needs: No Seatbelt use: always Helmet use: Yes Helmet use: always Drive intox or ride w/intox class a regional truck driver: No Do you feel safe at home: Yes Do you feel safe in your relationship?: Yes Female Reproductive History Menstrual Age of Menarche: 11 control method: none and permanent sterilization History History 2 Para 2 Hx # Term Pregnancies Multiple births Hx # Pregnancies Ectopic pregnancies AB induced Hx Number of Living Children AB spontaneous Past Pregnancies Del. Date GA/Weeks # Preg Succ Route Wgt Sex Labor Lgth Anesth esia Location Prov Complic 06/06/81 vaginal Male 10/21/90 vaginal Male Exam Const General: no acute distress, well developed, well groomed and not in acute distress Nutritional Appearance: well nourished Orientation: alert and oriented x3 HENMT Head: normocephalic and atraumatic Ears: external ears normal Mouth: oropharynx normal and moist mucous membranes Throat: posterior oropharynx normal Eyes Conjunctivae: conjunctivae normal Neck Neck: full ROM and supple Chest Chest: normal inspection of the chest Resp Effort & Inspection: normal respiratory effort Auscultation: clear to auscultation bilaterally Cardio Rate: regular rate Rhythm: regular rhythm Heart Sounds: no murmurs and no rubs GI Inspection: normal to inspection Palpation: soft, nontender and other (non distended) Auscultation: normal bowel sounds Skin General skin exam: no rashes or lesions noted and other (pink, warm, dry) Neuro General: patient alert, patient awake and patient oriented x3 Speech: speech normal Motor: other (VALERO) Sensory Exam: no sensory deficits noted Extrem General: normal to inspection, full ROM and pedal edema present Psych Mental Status: mental status grossly normal Speech and Movement: speech and movement normal Affect: normal affect Course Vital Signs Vital signs: Vital Signs Temperature 36.4 C L 03/24/23 03:51 Pulse 93 H 03/24/23 03:51 Respiratory Rate 18 03/24/23 03:51 Blood Pressure 211/70 H 03/24/23 03:51 Pulse Oximetry 95 03/24/23 03:51 Temperature 36.4 C L 03/24/23 03:51 Temperature Source Temporal Artery Scan 03/24/23 03:51 Pulse 93 H 03/24/23 03:51 Respiratory Rate 18 03/24/23 03:51 Respiratory Effort Normal, Non-Labored 03/24/23 03:56 Respiratory Pattern Tachypnea 03/24/23 03:56 Blood Pressure 211/70 H 03/24/23 03:51 Blood Pressure Position Sitting 03/24/23 03:51 Pulse Oximetry 95 03/24/23 03:51 Oxygen Delivery Method Room Air 03/24/23 03:51 Oxygen Flow Rate 0 03/24/23 03:51 Pain Level 0 03/24/23 03:51 PAWSS Have you Been Recently Intoxicated or Drunk Within the Last 30 days?: No Have you Ever Experienced Previous Episodes of Alcohol Withdrawal?: No Have you ever Experienced Withdrawal Seizures?: No Have you ever Experienced Delirium Tremens(DT)s?: No Have you ever undergone Alcohol Rehabilitation Treatment (i.e, inpt ot outpatient treatment programs)?: No Have you ever Experienced Blackouts?: No Have you ever Combined Alcohol with other Downers within the last 90 days?: No Have you ever Combined Alcohol with any other Substance of Abuse during the last 90 days?: No Positive Blood Alcohol level on Presentation? [PCS.BAL]: Yes Result: 1
[2023-03-24 04:30] LABS: Abs Immature Grans 0.02 10^3/uL (0.0-0.06); Absolute Basophil Count 0.05 10^3/uL (0.0-0.2); Absolute Eosinophil Count 0.11 10^3/uL (0.0-0.7); Absolute Lymphocyte Count 1.84 10^3/uL (1.2-3.4); Absolute Monocyte Count 0.52 10^3/uL (0.1-0.8); Absolute Neutrophil Count 6.02 10^3/uL (1.2-6.7); Basophils % 0.6; Eosinophils % 1.3; HCT 44.4 % (36.0-46.0); HGB 14.7 g/dL (11.2-15.7); Immature Grans % 0.2; Lymphocytes % 21.5; MCH 30.4 pg (27.0-33.0); MCHC 33.1 % (32.0-36.0); MCV 92 fL (80-95); MPV 10.4 fL (8.0-11.0); Monocytes % 6.1; Neutrophils % 70.3; Platelet Count 199 10^3/uL (130-400); RBC 4.84 10^6/uL (3.93-5.22); RDW 13.4 % (11.7-14.6); RDW-SD 45.6 fL; WBC 8.56 10^3/uL (4.4-10.8)
[2023-03-24 04:31] LABS: BE (Venous) -1 mmol/L (-2-3); HCO3 (Venous) 24 mmol/L (23-28); O2 Sat (Venous) 70 %; TCO2 (Venous) 22 mmol/L (24-29); pCO2 (Venous) 42 mmHg (41-51); pH (Venous) 7.37 (7.31-7.41); pO2 (Venous) 38 mmHg
[2023-03-24] MEDS: Normal Saline 1,000 ML 1000 ML IV (04:35)
--- NOTE | 2023-03-24 04:45 | DI.RAD_ITS ---
Exam(s) XR PORTABLE CHEST AP EXAM: XR PORTABLE CHEST AP CLINICAL HISTORY: AFIB. TECHNIQUE: 2D digital imaging was performed. COMPARISON: No exams were available for comparison FINDINGS: Single AP portable view. Heart size is upper normal. The mediastinum is not widened. Lungs are clear. No infiltrates nor obvious pleural effusions. IMPRESSION: No acute pulmonary findings on this single AP portable view of the chest. DATA REPOSITORY: RADIATION DOSE DELIVERED:
[2023-03-24 04:51] LABS: Troponin I < 50 ng/L (<or=60)
[2023-03-24 04:53] LABS: Magnesium 1.8 mg/dL (1.8-2.4)
[2023-03-24 04:58] LABS: ALT 29 U/L (14-59); AST 22 U/L (15-37); Albumin 3.7 g/dL (3.4-5.0); Alkaline Phosphatase 111 U/L (46-116); Anion Gap 10.1 mmol/L (3-11); BUN 16 mg/dL (7-18); Bilirubin, Total 0.4 mg/dL (0.2-1.0); CO2 23.9 mmol/L (21.0-32.0); Calcium 9.6 mg/dL (8.5-10.1); Chloride 105 mmol/L (98-107); Estimated GFR 59.12 (mL/min/1.73m2); Glucose 146 mg/dL (74-106); Sodium 139 mmol/L (136-145); TSH (W/Ref FT4) 1.56 uIU/mL (0.36-3.74); Total Protein 6.7 g/dL (6.4-8.2)
[2023-03-24 05:02] LABS: Bilirubin Negative (Negative); Blood Negative (Negative); Clarity Clear (Clear); Glucose Negative (Negative); Ketones Negative (Negative); Leukocyte Esterase Negative (Negative); Nitrite Negative (Negative); Urobilinogen 0.2 mg/dL (Up to 0.2); pH 5.5 (5-8)
--- NOTE | 2023-03-24 05:37 | NUR.NOTE ---
Pt placed on care management referral list to see primary in 1 week for palpatation and A-FIB
[2023-03-24] MEDS: LORazepam 0.5 MG TAB 1 MG PO (06:04)
--- NOTE | 2023-03-24 06:05 | DI.VRAD_ITS ---
PROCEDURE INFORMATION: Exam: XR Chest Exam date and time: 03/24/2023 5:10 AM Age: 72 years old Clinical indication: Other: Afib TECHNIQUE: Imaging protocol: Radiologic exam of the chest. Views: 1 view. COMPARISON: CT CHEST PE ABD PELVIS W 01/11/2023 7:38 PM FINDINGS: Lungs: Unremarkable. No consolidation. Pleural spaces: Unremarkable. No pleural effusion. No pneumothorax. Heart/Mediastinum: Unremarkable. No cardiomegaly. Bones/joints: Unremarkable. IMPRESSION: No acute findings. Dictated and Authenticated by: Elias Kline MD. Ordering:MYRTLE Thornton MD
--- NOTE | 2023-03-28 09:30 | NUR.NOTE ---
Accessed pt chart to determine number of EKG orders. Duplicate order cancelled. Nursing Note:
== END 2023-03-24 06:34 | disposition home or self-care (01) ==
PROVIDERS: Emergency Provider Emergency Medicine; PCP Family Medicine
DX: I48.91 Unspecified atrial fibrillation (principal); I48.92 Unspecified atrial flutter; E11.9 Type 2 diabetes mellitus without complications
CPT/HCPCS: 36416; 80053; 82805; 82962; 93005; 96360; 99284; 71045; 81003; 83605; 83735; 84443; 84484; 85025; 93010

== ENCOUNTER 2023-04-12 09:23 | Outpatient (RCR) | payer MEDICARE, SELFPAY ==
--- NOTE | 2023-04-12 09:15 | HOLTER_ITS ---
APPROVED REPORT Conclusion This is a 48-hour Holter monitor ordered for palpitations Rhythm throughout was sinus with an average heart rate of 78. Minimum was 61, maximum 117 There were very rare isolated atrial and ventricular ectopic beats There was no atrial fibrillation, no SVT, no pauses greater than 3 seconds, no high-grade AV block Patient symptoms were reported which did not correspond to any dysrhythmia
== END 2023-04-24 23:59 | disposition home or self-care (01) ==
LOC: CARDOPNVT 09:23
PROVIDERS: PCP Family Medicine; Visit Provider Nurse Practitioner Family
DX: R00.2 Palpitations (principal)
CPT/HCPCS: 93227; 93225; 93226

== ENCOUNTER 2023-04-18 03:37 | Outpatient (CLI) | payer MEDICARE, SELFPAY ==
[2023-04-27 10:45] LABS: Apolipoprotein B, Serum 118 mg/dL (48-124); Beta VLDL Cholesterol Not Detected mg/dL (<15); Beta VLDL Triglycerides Not Detected mg/dL (<15); Cholesterol, Total, CDC 218 mg/dL; Chylomicron Cholesterol Not Detected; Chylomicron Triglycerides Not Detected; HDL Cholesterol, CDC 46 mg/dL (>=50); LDL Cholesterol 147 mg/dL; LDL Triglycerides 70 mg/dL (<=50); Lp(a) Cholesterol <5 mg/dL (<5); LpX Not detected; Triglycerides, CDC 166 mg/dL; VLDL Cholesterol 25 mg/dL (<30); VLDL Triglycerides 78 mg/dL (<120)
== END 2023-04-18 03:38 | disposition home or self-care (01) ==
LOC: LBO 03:37
PROVIDERS: PCP Family Medicine; Visit Provider Family Medicine
DX: E78.5 Hyperlipidemia, unspecified (principal)
CPT/HCPCS: 80061; 82172; 82664

== ENCOUNTER → 2023-05-02 00:02 | Outpatient (CLI) | payer MEDICARE, SELFPAY ==
--- NOTE | 2023-05-02 08:15 | DI.MAMMO_ITS ---
Exam(s) MAMMO SCREENING EXAM: MAMMO SCREENING CLINICAL HISTORY: screening,Z12.39 TECHNIQUE: Bilateral full field digital CC and MLO mammographic images were obtained with 3D tomosyn thesis and utilizing computer aided detection (CAD). COMPARISON: Available for comparison. FINDINGS: Masses/Architectural Distortion: None seen. Microcalcifications: No suspicious pleomorphic-type are seen. Stable benign type calcifications are s een in both breasts. Skin Thickening/Nipple Retraction: None. IMPRESSION: 1. No significant interval change with no specific features of malignancy noted. 2. Unless there is more urgent need, screening mammography is recommended, as per [employer] guidelines. BI-RADS Category 2 - Benign Findings Breast Density - Category B - Scattered areas of fibroglandular density Breast density category C or D implies that the patient has dense breast tissue. Dense breast tissue is very common and is not abnormal but dense breast tissue can make it harder to find cancer on a ma mmogram. Also, dense breast tissue may increase their breast cancer risk. This information about the result of the mammogram report was provided to the patient to raise their awareness. Use this report when you speak with the patient about their risks for breast cancer, which includes their family hist ory. At that time, you may recommend for more screening tests (Ultrasound or MRI) as they might be us eful based on their risk. A negative radiographic report should not delay biopsy if a dominant or clinically suspicious mass is present. Up to ten percent of cancers are not identified on mammography. A negative report may reinforce clinical impression. Adenosis and dense breasts may obscure an underlying neoplasm. False positive reports average 6 to 10%. Patient will receive a letter notifying them of these results.
== END ==
PROVIDERS: PCP Family Medicine; Visit Provider Obstetrics & Gynecology
DX: Z12.31 Encounter for screening mammogram for malignant neoplasm of breast (principal); R92.323 Mammographic fibroglandular density, bilateral breasts
CPT/HCPCS: 77063; 77067

== ENCOUNTER 2023-06-24 12:50 | Emergency (ER) | payer MEDICARE, SELFPAY ==
[2023-06-24 13:28] VITALS: BP 197/87; PULSE 114; RESP 18; TEMP 36.8; O2SAT 94
--- NOTE | 2023-06-24 14:56 | ED.GENADUL_ITS ---
HPI General Stated Complaint: EyeProblem KENYA: 4 Date/Time Provider Initiated Documentation: 06/24/23 13:32. HPI Narrative: 72 year-old female presents to ED today by POV/ambulating with a chief complaint of green discharge from eyes after 1 month of productive cough with onset of eye discharge this morning. Quality described as very thick green mucous-y discharge, no radiation to blurred vision, vision loss, high fever, shortness of breath, abdominal pain, nausea/vomiting. Severity is described as 6/10. Palliating factors include nothing specific attempted. Provoking factors include nothing specific. Patient not anticoagulated. Related Data Home Medications Medication Instructions Recorded Confirmed Synthroid 88 mcg tablet 88 mcg PO DAILY #90 tabs 03/12/23 06/24/23 (levothyroxine) lorazepam 0.5 mg tablet 0.5 mg PO TID PRN agitation #15 03/24/23 06/24/23 tabs vortioxetine 5 mg tablet 5 mg PO DAILY 30 days #30 tabs 05/31/23 06/24/23 azithromycin 250 mg tablet See Rx Instructions PO .COMPLEX 06/24/23 bronchitis #6 tabs erythromycin 5 mg/gram (0.5 %) eye 0.5 inch ophthalmic (eye) QID 06/24/23 ointment conjunctivitis 5 days #3.5 grams Previous Rx's Medication Instructions Recorded Synthroid 88 mcg tablet 88 mcg PO DAILY #90 tabs 03/12/23 (levothyroxine) lorazepam 0.5 mg tablet 0.5 mg PO TID PRN agitation #15 03/24/23 tabs vortioxetine 5 mg tablet 5 mg PO DAILY 30 days #30 tabs 05/31/23 azithromycin 250 mg tablet See Rx Instructions PO .COMPLEX 06/24/23 bronchitis #6 tabs erythromycin 5 mg/gram (0.5 %) eye 0.5 inch ophthalmic (eye) QID 06/24/23 ointment conjunctivitis 5 days #3.5 grams Allergies Allergy/AdvReac Type Severity Reaction Status Date / Time prednisone Allergy Unknown Verified 06/24/23 13:30 epinephrine Allergy Verified 06/24/23 13:30 Sulfa (Sulfonamide Allergy Verified 06/24/23 13:30 Antibiotics) tirzepatide [From Mounjaro] AdvReac Other (See Verified 06/24/23 13:30 Comment) Review of Systems All systems reviewed & are unremarkable except as noted in HPI and below PFSH All Active Problems (Updated 06/27/23 @ 15:15 by FROILAN Mandujano) Acute bronchitis (Acute) Conjunctivitis (Acute) Dysthymia (Acute) Hypothyroidism (Chronic) Fatty liver (Acute) Hyperlipidemia (Acute) Diabetes mellitus type 2 in obese (Acute) ADD (attention deficit disorder) (Acute) Obesity (Chronic) Osteopenia (Acute) Primary hyperparathyroidism (Acute) BMI 31.0-31.9,adult (Acute) Medical History Arthritis Chronic fatigue Depressive disorder Elevated blood pressure reading without diagnosis of hypertension Elevated glucose Elevated liver function tests Hearing deficit Hot flashes Hypercalcemia Hyperglycemia Hypoxia Obstructive sleep apnea Sprain of thumb Vitamin D deficiency Weakness Well woman exam with routine gynecological exam Surgical History Hx of hysterectomy Family History Mother , 72 Depression Bipolar affect, depressed Father , 86 Depression Substance use disorder Sister FHx: mental illness Sister No problems noted. Brother Depression Bipolar affect, depressed Brother Depression Bipolar affect, depressed Son No problems noted. Son No problems noted. Maternal Grandfather , 56 Cancer Unspecified Paternal Grandfather , 80 No problems noted. Maternal Grandmother , 98 No problems noted. Paternal Grandmother , 36 No problems noted. Social History Smoking/Tobacco Use Status: Never Second Hand Exposure: No Smoking risk assessment performed?: Yes Alcohol Intake: current Alcohol Intake frequency: a few times a month Alcohol type: wine Drug use: Never Substance use type: does not use Caregiver/Support person: No Household members: family and children Housing: apartment Communication Needs: None Do you need help understanding health information?: Rarely Pets and animals: No Sexually active: No Do you think of yourself as: straight/heterosexual Current gender identity: female What is your relationship status?: never How often do you talk on the phone with friends or family?: three or more times per week How often do you get together with friends or relatives?: twice per week How often do you attend hoahaoism or baptism services?: decline to answer Do you belong to any clubs or organized social groups?: no Panel score (0-1 are the most socially isolated patients): 1 What type of physical activity do you participate in: walking Duration: 30-45 minutes/day Frequency: 3-4 times per week Hellen/Yazdanism: None Special hellen needs: No Seatbelt use: always Helmet use: Yes Helmet use: always Drive intox or ride w/intox 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 Date GA/Weeks # Preg Succ Route Wgt Sex Labor Lgth Anesth esia Location Prov Complic 06/06/81 vaginal Male 10/21/90 vaginal Male Exam Narrative Exam Narrative: GENERAL APPEARANCE: Well-nourished, non-toxic, awake and alert, atraumatic, no acute distress. SKIN: Warm, pink, dry, intact, without rashes/lesions/ulcerations. HEAD: Normocephalic, atraumatic, normal hair distribution for gender/age. EYES: Pupils PERRLA, EOMs intact without nystagmus, erythematous conjunctiva, no exudates on lids/lashes- patient states worse in morning but has wiped away the purulent drainage, vision grossly normal ENT: Nares patent, no circumoral cyanosis, no facial swelling NECK: Supple, trachea midline, painless cervical ROM. LUNGS/CHEST: Lungs CTA bilaterally- no rhonchi/rales/wheezes diffusely, non- labored respirations, normal A/P diameter, symmetrical expansion, no chest wall deformity HEART (CV/PV): Regular rate and rhythm without murmur, no peripheral edema, no JVD. ABDOMEN: Soft, non-distended, no guarding. MSK: Normal ROM, no swelling/deformity to bilateral UEs or LEs, moving all extremities without weakness, no cyanosis, spine midline without tenderness, normal curvature. NEURO: Mental Status AAOx4 - alert to person, place, time, events No facial droop, no forehead involvement. Motor: No focal weakness - strength 5/5 in bilateral UEs and LEs, proximal and distal, symmetric. Sensory: sensation intact to light touch globally. Gait normal: patient ambulated without ataxia into ED room. PSYCH: euthymic, cooperative, pleasant, appropriate speech Course Vital Signs Vital signs: Vital Signs Temperature 36.8 C 06/24/23 13:28 Pulse 114 H 06/24/23 13:28 Respiratory Rate 18 06/24/23 13:28 Blood Pressure 197/87 H 06/24/23 13:28 Pulse Oximetry 94 06/24/23 13:28 Temperature 36.8 C 06/24/23 13:28 Temperature Source Temporal Artery Scan 06/24/23 13:28 Pulse 114 H 06/24/23 13:28 Respiratory Rate 18 06/24/23 13:28 Blood Pressure 197/87 H 06/24/23 13:28 Blood Pressure Position Sitting 06/24/23 13:28 Pulse Oximetry 94 06/24/23 13:28 Oxygen Delivery Method Room Air 06/24/23 13:28 Oxygen Flow Rate 0 06/24/23 13:28 Medical Decision Making This dictation utilizes [id number] dictation software and may contain unedited grammatical errors. 72 y/o F presents to ED today with a chief complaint of bilateral eye purulent drainage this morning, after a month-long productive cough. No shortness of breath, high fevers, visual changes, nausea/vomiting. Patients' medical history: chronic fatigue, SJ, hyperparathyroidism. Family and social history: noncontributory. Pertinent exam findings / vital signs include mild adventitious lung sounds without overt rhonchi or rales at bases, no wheezing, no increased work of breathing or respiratory distress, benign abdomen, vision grossly intact, no current exudate in the eyes but does have erythematous conjunctiva. Differential / pathologies of concern include bacterial conjunctivitis in the setting of untreated bacterial bronchitis for the past month, viral conjunctivitis, not hypoxic respiratory failure. Diagnostic studies of: -None. Interventions of: -Topical erythromycin as well as 5-day course of azithromycin for the patient's 1 month history of productive cough. ED Course/Assessment/Plan: 72-year-old female presents with bilateral eye redness and purulent drainage worse in the mornings, without visual changes, has had an untreated productive cough for the past month that is not going away, discussed with her empiric treatment versus performing a more in-depth workup at this time but she had waited a significant amount of time and opted for empiric treatment instead of waiting for chest x-ray and possible laboratory workup, she will return if there is any worsening or acute concerns.. Findings not consistent with hypoxic respiraory failure, respiratory distress, vision loss or change. Disposition of Conjunctivitis, Acute Bronchitis. Patient verbalized understanding of the plan and return to ED criteria and engaged in shared decision making. Medical Records Medical records reviewed: Yes I reviewed the patient's medical records. Discharge Plan Disposition Patient Disposition: Home Condition: Stable Discharge Details Clinical Impression: Conjunctivitis, Acute bronchitis Primary Care Provider: Teja Medina ED Provider: Luciano Lange Home Meds and New Rx's Prescriptions: New erythromycin 5 mg/gram (0.5 %) ointment 0.5 inch ophthalmic (eye) QID 5 Days Qty: 3.5 0RF Rx Instructions: apply 0.5in topically to both eyes four times per day for 5 days azithromycin 250 mg tablet See Rx Instructions .ROUTE .COMPLEX Qty: 6 0RF Rx Instructions: For 250 mg dose pack: take 500 mg today (day 1), then 250 mg for 4 days (days 2-5) Continued vortioxetine 5 mg tablet 5 mg PO DAILY 30 Days Qty: 30 6RF Rx Instructions: Take one tablet once daily by mouth. levothyroxine [Synthroid] 88 mcg tablet 88 mcg PO DAILY Qty: 90 3RF lorazepam 0.5 mg tablet 0.5 mg PO TID PRN (Reason: agitation) Qty: 15 0RF Hold Instructions: Home Medication placed on hold at Doctor's office Discharge Instructions Instructions: Azithromycin (By mouth), Erythromycin (Into the eye), Acute Bronchitis (ED), Conjunctivitis (ED) Additional Instructions: You were seen in the emergency department for your lower respiratory infection of 2 weeks now developing conjunctivitis, you likely have a bacterial infection we discussed possibility of chest x-ray but due to time constraints you wish to try erythromycin ointment topically for your eyes and a 5-day course of azithromycin, please return for any worsening, any respiratory distress or failure to improve with antibiotics. These were sent to [facility] in [place]. Please use therapeutic dosing of Tylenol (acetamenophen) & Advil (ibuprofen) in an alternating fashion as follows: Take 1000mg of Tylenol every 6 hours without missing doses- that is 4 times per day. Dailey in between the Tylenol dosings, take 400-600mg of Advil also on a 6 hour schedule, that is also 4 times per day. The daily maximum dosing of Tylenol is 4000mg, and the daily maximum dosing of Advil is 2400mg. This is safe to do for weeks. Please note that some common cold medications & prescription pain medications may contain acetamenophen and you need to read OTC drug labels and factor that in to maximum daily dosings. Referrals: Teja Medina MD [Primary Care Provider] - Discharge Data Discharge Date/Time-TO BE ENTERED AT DEPARTURE: 06/24/23 15:10
== END 2023-06-24 15:10 | disposition home or self-care (01) ==
PROVIDERS: Emergency Provider Physician Assistant; PCP Family Medicine
DX: H10.023 Other mucopurulent conjunctivitis, bilateral (principal); R05.1 Acute cough
CPT/HCPCS: 99283

== ENCOUNTER 2023-06-28 15:07 | Outpatient (CLI) | payer MEDICARE, SELFPAY ==
[2023-06-28 14:37] LABS: ESR 11 mm/hr (0-30)
[2023-06-28 14:38] LABS: Abs Immature Grans 0.04 10^3/uL (0.0-0.06); Absolute Lymphocyte Count 2.58 10^3/uL (1.2-3.4); Absolute Monocyte Count 0.79 10^3/uL (0.1-0.8); Eosinophils % 1.4; HCT 46.5 % (36.0-46.0); HGB 15.2 g/dL (11.2-15.7); Immature Grans % 0.3; Lymphocytes % 20.5; MCH 30.3 pg (27.0-33.0); MCHC 32.7 % (32.0-36.0); MCV 93 fL (80-95); MPV 9.8 fL (8.0-11.0); Monocytes % 6.3; Neutrophils % 70.5; Platelet Count 259 10^3/uL (130-400); RBC 5.01 10^6/uL (3.93-5.22); RDW 12.8 % (11.7-14.6); RDW-SD 43.8 fL; WBC 12.59 10^3/uL (4.4-10.8)
[2023-06-28 14:39] LABS: Absolute Basophil Count 0.13 10^3/uL (0.0-0.2); Absolute Eosinophil Count 0.18 10^3/uL (0.0-0.7); Absolute Neutrophil Count 8.88 10^3/uL (1.2-6.7)
[2023-06-28 14:56] LABS: Anion Gap 7.6 mmol/L (3-11); BUN 16 mg/dL (7-18); C-Reactive Protein 1.86 mg/dL (0.0-0.3); CO2 27.4 mmol/L (21.0-32.0); CREATININE 1.1 mg/dL (0.55-1.02); Calcium 9.9 mg/dL (8.5-10.1); Chloride 105 mmol/L (98-107); Estimated GFR 52.73 (mL/min/1.73m2); Glucose 118 mg/dL (74-106); Potassium 4.2 mmol/L (3.5-5.1); Sodium 140 mmol/L (136-145)
== END 2023-06-28 15:08 | disposition home or self-care (01) ==
PROVIDERS: PCP Family Medicine; Visit Provider Family Medicine
DX: R41.89 Other symptoms and signs involving cognitive functions and awareness (principal); D64.9 Anemia, unspecified; R53.81 Other malaise; E87.1 Hypo-osmolality and hyponatremia
CPT/HCPCS: 36415; 80048; 85652; 85025; 86140

== ENCOUNTER 2023-09-07 00:09 | Emergency (ER) | payer MEDICARE, SELFPAY ==
[2023-09-07 00:17] VITALS: BP 164/97; PULSE 98; RESP 16; TEMP 36.7; O2SAT 97
[2023-09-07 00:34] VITALS: PULSE 92; RESP 14; O2SAT 94
[2023-09-07 00:35] LABS: Bilirubin Negative (Negative); Blood Large (Negative); Clarity Sl Cloudy (Clear); Glucose Negative (Negative); Ketones Negative (Negative); Leukocyte Esterase Large (Negative); Nitrite Negative (Negative); Urobilinogen 0.2 mg/dL (Up to 0.2)
[2023-09-07 00:38] LABS: C & S Indicated? Yes; WBC >50 HPF (0-5)
[2023-09-07 00:39] LABS: RBC >50 HPF (0-2)
[2023-09-07 00:40] VITALS: PULSE 93; RESP 18; O2SAT 94
[2023-09-07 00:45] VITALS: BP 168/87; PULSE 92; PULSE 95; RESP 23; O2SAT 94
[2023-09-07 00:50] VITALS: PULSE 90; RESP 13; O2SAT 95
[2023-09-07] MEDS: Ciprofloxacin 500 MG TAB PO (00:51)
--- NOTE | 2023-09-07 00:51 | ED.GENADUL_ITS ---
Discharge Plan Disposition Patient Disposition: Home Condition: Good Discharge Details Clinical Impression: Urinary tract infection Primary Care Provider: Teja Medina ED Provider: Idris Scott Home Meds and New Rx's Prescriptions: New ciprofloxacin HCl [Cipro] 250 mg tablet 250 mg PO BID Qty: 14 0RF No Action (DME) Aerochamber MV Spacer See Rx Instructions .Route Qty: 1 0RF Rx Instructions: As directed levothyroxine [Synthroid] 88 mcg tablet 88 mcg PO DAILY Qty: 90 3RF Discharge Instructions Instructions: Urinary Tract Infection in Women (ED) Additional Instructions: Take 1 Cipro tablet every 12 hours, beginning tomorrow, for the next 7 days. Symptoms should be significantly improved within the next 6 to 12 hours. Follow-up with regular primary care doctor for recheck and further management if symptoms not improving with this care plan. Discharge Data Discharge Physician: Idris Scott [facility] General Date/Time Provider Initiated Documentation: 09/07/23 00:13 . HPI Narrative: The patient is a 72-year-old female, who presents the emergency department com plaining of approximately 24 hours of lower abdominal discomfort, dysuria, urinary urgency, and some hematuria. The patient reports that she has been having some increased diarrhea and typically has some staining of fecal matter in her underwear and is concerned she might have given herself urinary tract infection. The patient is not sexually active right now and has not had a urinary tract infection in several years. The patient reports no flank pain on either side. The patient denies having any fevers or chills. Related Data Home Medications Medication Instructions Recorded Confirmed Synthroid 88 mcg tablet 88 mcg PO DAILY #90 tabs 03/12/23 09/07/23 (levothyroxine) inhalational spacing device #1 ea 06/30/23 06/30/23 (Aerochamber MV spacer) ciprofloxacin HCl 250 mg tablet 250 mg PO BID #14 tabs 09/07/23 (Cipro) Previous Rx's Medication Instructions Recorded Synthroid 88 mcg tablet 88 mcg PO DAILY #90 tabs 03/12/23 (levothyroxine) inhalational spacing device #1 ea 06/30/23 (Aerochamber MV spacer) ciprofloxacin HCl 250 mg tablet 250 mg PO BID #14 tabs 09/07/23 (Cipro) Allergies Allergy/AdvReac Type Severity Reaction Status Date / Time prednisone Allergy Unknown Hives Verified 09/07/23 00:24 Sulfa (Sulfonamide Allergy Hives Verified 09/07/23 00:24 Antibiotics) tirzepatide [From Mounjaro] AdvReac Other (See Verified 09/07/23 00:24 Comment) General Stated Complaint: Urinary KENYA: 4 Exam Const Other: The patient is in no distress and has normal vital signs. GI Other: Soft, nontender, normal bowel sounds. Neuro Other: No focal motor or sensory deficits. Cranial nerves are grossly intact. Course Vital Signs Vital signs: Vital Signs Temperature 36.7 C 09/07/23 00:17 Pulse 98 H 09/07/23 00:17 Respiratory Rate 16 09/07/23 00:17 Blood Pressure 164/97 H 09/07/23 00:17 Pulse Oximetry 97 09/07/23 00:17 Temperature 36.7 C 09/07/23 00:17 Temperature Source Temporal Artery Scan 09/07/23 00:17 Pulse 98 H 09/07/23 00:17 Respiratory Rate 16 09/07/23 00:17 Respiratory Effort Normal 09/07/23 00:30 Blood Pressure 164/97 H 09/07/23 00:17 Pulse Oximetry 97 09/07/23 00:17 Oxygen Delivery Method Room Air 09/07/23 00:30 Pain Level 0 09/07/23 00:17 Lab/Test Results Lab/Test Results: 09/07/23 00:12 Urine - Reflex from Ua Urine Culture - Pending Laboratory Tests Range/Units 09/07/23 00:12 Urine Color (Yellow) Yellow Urine Clarity (Clear) Sl Cloudy Urine pH (5-8) 6.0 Ur Specific [place] (1.005-1.025) 1.020 Urine Protein (Neg-Trace) mg/dL 100 H Urine Ketones (Negative) mg/dL Negative Urine Blood (Negative) Large H Urine Nitrite (Negative) Negative Urine Bilirubin (Negative) Negative Urine Urobilinogen (Up to 0.2) mg/dL 0.2 Ur Leukocyte Esterase (Negative) Large H Urine RBC (0-2) HPF >50 H Urine WBC (0-5) HPF >50 H Ur Epithelial Cells Not Applicable Urine Crystals Not Applicable Urine Bacteria Not Applicable Urine Mucus Not Applicable Ur Culture Indicated? Yes Urine Glucose (Negative) mg/dL Negative Medical Decision Making The patient was seen and examined. She is in no distress but has signs and symptoms of urinary tract infection. She mostly does have cystitis related to fecal contamination close to her urinary tract introitus. The patient will be started on oral Cipro for 7 days and referred back to primary care as needed for any residual symptoms or management issues. Quality:SDOH Health Related Social Needs: No Data to Display PFSH All Active Problems (Updated 09/07/23 @ 00:54 by Idris Scott MD) Urinary tract infection (Acute) Malaise (Acute) Dysthymia (Acute) Hypothyroidism (Chronic) Fatty liver (Acute) Hyperlipidemia (Acute) Diabetes mellitus type 2 in obese (Acute) ADD (attention deficit disorder) (Acute) Obesity (Chronic) Osteopenia (Acute) Primary hyperparathyroidism (Acute) BMI 31.0-31.9,adult (Acute) Medical History Well woman exam with routine gynecological exam Elevated glucose Hypoxia Weakness Chronic fatigue Hyperglycemia Hot flashes Vitamin D deficiency Depressive disorder Arthritis Obstructive sleep apnea Hypercalcemia Elevated liver function tests Hearing deficit Elevated blood pressure reading without diagnosis of hypertension Sprain of thumb Surgical History Hx of hysterectomy Family History Mother , 72 Depression Bipolar affect, depressed Father , 86 Depression Substance use disorder Sister FHx: mental illness Sister No problems noted. Brother Depression Bipolar affect, depressed Brother Depression Bipolar affect, depressed Son No problems noted. Son No problems noted. Maternal Grandfather , 56 Cancer Unspecified Paternal Grandfather , 80 No problems noted. Maternal Grandmother , 98 No problems noted. Paternal Grandmother , 36 No problems noted. Social History Smoking/Tobacco Use Status: Never Second Hand Exposure: No Smoking risk assessment performed?: Yes Alcohol Intake: current Alcohol Intake frequency: a few times a month Alcohol type: wine Drug use: Never Substance use type: does not use Caregiver/Support person: No Household members: family and children Housing: apartment Communication Needs: None Do you need help understanding health information?: Rarely Pets and animals: No Sexually active: No Do you think of yourself as: straight/heterosexual Current gender identity: female What is your relationship status?: never How often do you talk on the phone with friends or family?: three or more times per week How often do you get together with friends or relatives?: twice per week How often do you attend samaritan or scientologist services?: decline to answer Do you belong to any clubs or organized social groups?: no Panel score (0-1 are the most socially isolated patients): 1 What type of physical activity do you participate in: walking Duration: 30-45 minutes/day Frequency: 3-4 times per week Hellen/Lutheran: None Special hellen needs: No Seatbelt use: always Helmet use: Yes Helmet use: always Drive intox or ride w/intox 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 Date GA/Weeks # Preg Succ Route Wgt Sex Labor Lgth Anesth esia Location Prov Complic 06/06/81 vaginal Male 10/21/90 vaginal Male
== END 2023-09-07 01:02 | disposition home or self-care (01) ==
LOC: ER 01:06
PROVIDERS: Emergency Provider Emergency Medicine Emergency Medical Services; PCP Family Medicine
DX: R31.0 Gross hematuria (principal); R30.0 Dysuria; R39.15 Urgency of urination; N39.0 Urinary tract infection, site not specified
CPT/HCPCS: 87077; 99283; 81003; 81015; 87086; 87186